=== PATIENT | female | born 1930 | race Caucasian/White ===

== ENCOUNTER 2019-12-24 08:33 | Inpatient (IN) | payer OTHER, MEDICAID ==
[~2019-12-24] VITALS: Ht 167.6 cm; Wt 59.0 kg
[2019-12-24] MEDS ORDERED: DEXTROSE 10% 1,000 ML IV ONE ×2 (08:46→09:45)
[2019-12-24] MEDS ORDERED: NOREPINEPHRINE 8 MG/250ML KIT 250 ML IV ONE (08:47)
[2019-12-24 08:50] VITALS: BP 103/56
[2019-12-24] MEDS ORDERED: cefTRIAXone 1GM/50ML D5W 50 ML IV ONE ×2 (08:57→09:45)
[2019-12-24] MEDS ORDERED: PIPERACILLIN-TAZOB 3.375GM 100 ML IV ONE (09:00)
[2019-12-24] MEDS ORDERED: CLINDAMYCIN 300MG IV 50 ML IV ONE (09:00)
[2019-12-24] MEDS ORDERED: MIDAZOLAM DRIP 50 mg/50mL 50 ML IV ONE (09:12)
[2019-12-24 09:26] LABS: Hemoglobin 8.1 g/dL (12.2-16.2)
[2019-12-24 09:28] LABS: Hematocrit 27.9 % (36.0-46.0); Mean Corpuscular Hemoglobin 30.6 pg (28.0-32.0); Mean Corpuscular Hgb Conc. 29.2 g/dL (32.0-36.0); Mean Corpuscular Volume 104.6 fL (80.0-100.0); Platelet Count (auto) 426 10^3/uL (140-450); Red Blood Cells 2.66 10^6/uL (4.0-5.20); Red Cell Distribution Width 16.6 % (11.8-14.3); White Blood Cell 15.9 10^3/uL (4.4-10.8)
[2019-12-24] MEDS ORDERED: MIDAZOLAM DRIP 50 mg/50mL 50 ML IV SCH (09:32)
[2019-12-24] MEDS ORDERED: NOREPINEPHRINE 8 MG/250ML KIT 250 ML IV SCH (09:32)
[2019-12-24 09:33] LABS: Basophils % (manual) 0 (0.0-2.0); Blast Cells 0; Metamyelocytes % 0; Myelocytes % 0; Promyelocytes % 0; Reactive Lymphocytes 0
[2019-12-24 09:37] LABS: Urine Bacteria MANY /hpf (None Seen); Urine Blood TRACE /uL (Negative); Urine Mucus FEW (None Seen); Urine WBC 36 /hpf (0 - 5); Urine WBC Clumps PRESENT /hpf (None Seen)
[2019-12-24] MEDS ORDERED: PHENYLEPHRINE IV 250 ML IV ONE ×2 (09:45→12:21)
[2019-12-24 10:05] LABS: Albumin 1.2 g/dL (3.4-5.0); Calcium 7.9 mg/dL (8.5-10.1)
[2019-12-24 10:06] LABS: Lactic Acid w/Reflex 14.2 mmol/L (0.4-2.0)
[2019-12-24 10:14] LABS: BUN/Creatinine Ratio 34.7; Bilirubin, Total 0.3 mg/dL (0.2-1.0); Total Protein 4.3 g/dL (6.4-8.2)
[2019-12-24] MEDS ORDERED: SODIUM BICARBONATE 8.4 % INJ 50ML VIAL IV ONE ×3 (10:15→10:41)
[2019-12-24 10:19] LABS: Potassium 6.6 mmol/L (3.5-5.1)
[2019-12-24 10:26] LABS: INR 1.52 (0.9-1.15)
[2019-12-24 10:29] LABS: Partial Thromboplastin Time 73.4 sec (23.64-32.05)
[2019-12-24 10:30] VITALS: BP 75/45
[2019-12-24] MEDS ORDERED: SODIUM CHLORIDE 0.9% 1,750 ML IV ONE (10:30)
[2019-12-24] MEDS ORDERED: [UNRECOGNIZED DRUG - OTHER] IV ONE ×2 (10:30)
[2019-12-24] MEDS ORDERED: SODIUM BICARBONATE IV ONE ×2 (10:30)
[2019-12-24 10:35] LABS: Band Neutrophils % (manual) 4; Eosinophils % (manual) 1 (0-7); Lymphocytes % (manual) 30 (10.0-50.0); Monocytes % (manual) 5 (0-12)
[2019-12-24] MEDS ORDERED: SODIUM BICARBONATE 50ML VIAL 150 ML in SOD CHL 0.45% 1,000 ML IV ONE (11:15)
[2019-12-24 11:16] VITALS: BP 75/45
[2019-12-24] MEDS ORDERED: PIPERACILLIN-TAZOB 3.375GM 100 ML IV SCH (12:00)
[2019-12-24] MEDS ORDERED: PANTOPRAZOLE 40 MG/10 ML VIAL INJ IV ONE (12:00)
[2019-12-24] MEDS ORDERED: SODIUM CHLORIDE 0.9% 1,000 ML IV SCH (12:00)
[2019-12-24 12:09] VITALS: BP 68/42
[2019-12-24] MEDS ORDERED: SODIUM CHLORIDE 0.9% 1,000 ML IV ONE ×2 (12:15→13:45)
[2019-12-24] MEDS ORDERED: PHENYLEPHRINE IV 250 ML IV SCH (12:18)
[2019-12-24] MEDS ORDERED: CALCIUM GLUC 4.65meq/50ml D5AE 50 ML IV ONE (12:45)
[2019-12-24] MEDS ORDERED: EPINEPHrine HCL 250 ML IV SCH (13:22)
[2019-12-24] MEDS ORDERED: InsuLIN R (HUMAN) 100 UNITS in SODIUM CHL 0.9% 99 ML IV SCH (13:44)
[2019-12-24] MEDS ORDERED: FUROSEMIDE 20 MG/2 ML VIAL IV ONE (13:45)
[2019-12-24] MEDS ORDERED: NITROGLYCERIN 0.4 MG SL TAB SL PRN (13:45)
[2019-12-24] MEDS ORDERED: DEXTROSE (50%) 50ML SYRG IV PRN (13:45)
[2019-12-24] MEDS ORDERED: MORPHINE SULF INJ 2 MG/ML SYRINGE 1ML IV PRN (13:45)
[2019-12-24] MEDS ORDERED: ALBUTEROL SULF 2.5 MG/0.5ML(0.5%) NEB SOLN NEB ONE (13:45)
[2019-12-24] MEDS ORDERED: CALCIUM CHL 100MG/ML 1,000 MG in D5W 5% 100 ML IV ONE (13:45)
[2019-12-24] MEDS ORDERED: INSULIN LANTUS (GLARGINE) 1 /0.01ml (100units/ml) SC ONE (13:45)
[2019-12-24] MEDS ORDERED: SODIUM ZIRCONIUM CYCL 10 GM PAK PO ONE (13:45)
[2019-12-24 13:53] LABS: Hemoglobin 7.8 g/dL (12.2-16.2)
[2019-12-24 13:55] LABS: Hematocrit 25.8 % (36.0-46.0)
[2019-12-24] MEDS ORDERED: CLINDAMYCIN 600MG IV 50 ML IV SCH (14:00)
[2019-12-24] MEDS ORDERED: SODIUM ZIRCONIUM CYCL 10 GM PAK PO SCH ×3 (14:00→22:00)
[2019-12-24 14:15] VITALS: BP 60/32
[2019-12-24] MEDS ORDERED: ACCU-CHEK COMFORT CURVE STRIP VI SCH (15:00)
[2019-12-25] MEDS ORDERED: INSULIN LANTUS (GLARGINE) 1 /0.01ml (100units/ml) SC SCH (10:00)
== END 2019-12-24 14:19 | disposition expired | DRG 871 ==
LOC: EDBD 08:33 → ER 08:33 → OVERFLOW 08:34
PROVIDERS: ADMIT Hospitalist; ATTEND Hospitalist
PROC: 5A1935Z Respiratory Ventilation, Less than 24 Consecutive Hours (ICD-10-PCS; principal; 2019-12-24)
PROC: 0BH17EZ Insertion of Endotracheal Airway into Trachea, Via Natural or Artificial Opening (ICD-10-PCS; 2019-12-24)
PROC: 5A12012 Performance of Cardiac Output, Single, Manual (ICD-10-PCS; 2019-12-24)
PROC: 05HY33Z Insertion of Infusion Device into Upper Vein, Percutaneous Approach (ICD-10-PCS; 2019-12-24)
DX: A41.9 Sepsis, unspecified organism (principal); L89.224 Pressure ulcer of left hip, stage 4; R65.21 Severe sepsis with septic shock; E11.10 Type 2 diabetes mellitus with ketoacidosis without coma; J96.01 Acute respiratory failure with hypoxia; E87.1 Hypo-osmolality and hyponatremia; N39.0 Urinary tract infection, site not specified; N17.9 Acute kidney failure, unspecified; D68.9 Coagulation defect, unspecified; D64.9 Anemia, unspecified; E86.0 Dehydration; I46.9 Cardiac arrest, cause unspecified; E87.5 Hyperkalemia; I48.0 Paroxysmal atrial fibrillation; J45.909 Unspecified asthma, uncomplicated; K72.90 Hepatic failure, unspecified without coma; Z20.828 Contact with and (suspected) exposure to other viral communicable diseases
CPT/HCPCS: 36415; 36556; 36600; 51702; 71045; 80053; 81001; 82728; 82805; 83605; 83615; 83880; 84484; 85007; 85014; 85018; 85027; 85379; 85610; 85730; 87040; 87070; 87077; 87186; 87205; 87804; 87880; 92950; 93005; 94002; 96365; 96366; 96367; 96368; 99291; C9113; G0378; J0171; J0610; J0696; J1815; J2250; J2543; J3490; J7060